=== PATIENT | male | born 1990 | race Caucasian/White ===

== ENCOUNTER 2020-05-08 07:26 | Emergency (ER) | payer OTHER, SELFPAY ==
--- NOTE | ~2020-05-08 | CT_ITS ---
EXAMINATION: CT ABDOMEN AND PELVIS WITHOUT CONTRAST CLINICAL INFORMATION: Right flank pain for 2 weeks worse today. COMPARISON: CT abdomen and pelvis 07/06/2011. TECHNIQUE: Multidetector volumetric imaging was performed from the superior aspect of the liver through the pubic symphysis. Sagittal and coronal reformatted images were obtained on the technologist's workstation. This CT examination was performed using dose optimization techniques as appropriate, variously including the following: *Automated exposure control *Adjustment of mA and/or kV according to patient size (this includes techniques or standardized protocols for targeted exams where dose is matched to indication/reason for exam; i.e. extremities or head) *Use of iterative reconstruction technique DLP: 1741 mGy-cm FINDINGS: LUNG BASES: The visualized lung bases are unremarkable. LIVER, GALLBLADDER, AND BILIARY TREE: The liver is normal in size, shape, and attenuation. No focal hepatic lesion or biliary ductal dilatation is present. The gallbladder is unremarkable with no evidence of radiopaque gallstones, gallbladder wall thickening, or obvious pericholecystic inflammatory changes. PANCREAS: Unremarkable. SPLEEN: Unremarkable. ADRENAL GLANDS: Unremarkable. KIDNEYS AND URETERS: The kidneys are normal in size, shape, and attenuation. No hydronephrosis, hydroureter, or calculi seen. No perinephric stranding. BLADDER: Unremarkable. GASTROINTESTINAL TRACT: There is scattered stool and gas in throughout the colon without distention. A few scattered diverticuli seen in the sigmoid and descending colon but no mural thickening or diverticulitis. The small bowel loops are normal caliber. Appendix has been surgically removed with coleen in place. No inflammatory process seen in the abdomen. ABDOMINAL WALL: No significant hernia is appreciated. LYMPH NODES: There are small shotty lymph nodes in bilateral bilateral inguinal region. VASCULAR: Unremarkable. PELVIC VISCERA: No pelvic mass or lymph nodes seen. There is no free fluid. OSSEOUS STRUCTURES: There is moderate spondylosis lower dorsal spine. CT/CT abdomen pelvis wo con IMPRESSION: No acute intra-abdominal process seen. No evidence of previous appendectomy. Mild constipation with scattered diverticuli but no diverticulitis or obstruction seen. No radiopaque urolith or hydroureteronephrosis.
[2020-05-08 07:53] VITALS: BP 125/78; PULSE 76; RESP 16; TEMP 36.6; O2SAT 96; BMI 53.1
--- NOTE | 2020-05-08 08:46 | ED_ITS ---
HPI - Back Pain/Injury General Chief Complaint: Back Pain/Injury Stated Complaint: BACK PAIN WORK RELATED Time Seen by Provider: 05/08/20 08:19 Source: patient Mode of arrival: ambulatory Limitations: no limitations History of Present Illness HPI Narrative: 29-year-old male with no significant past medical history presenting to the ED with complaints of right lower back pain for the past month now radiating up the spine within the past few days which started when he was at work. Reports he works at a [employer] and does heavy lifting, bending over, standing and sitting for long period's of time. MD elicited complaint: back pain and back injury Pertinent past history: prior back pain Onset (ago): month(s) (One month worse within the past few days) Timing: constant Severity: moderate Similar Symptoms Previously: Yes Quality: aching Location: lumbar spine and right lower back Radiation: none Exacerbating factors: movement, walking and lifting Relieving factors: none Associated symptoms: denies other symptoms Work related injury: Yes Related Data Previous Rx's Medication Instructions Recorded cyclobenzaprine 10 mg PO TID PRN #10 tab 05/08/20 lidocaine [Lidoderm] 1 patch TOPICAL DAILY #15 ea 05/08/20 naproxen 500 mg PO BID PRN #10 tab 05/08/20 Allergies Allergy/AdvReac Type Severity Reaction Status Date / Time No Known Allergies Allergy Unverified 12/14/19 16:17 Review of Systems Review of Systems: Constitutional : No trauma, No Weight loss, No Fever, No Chills, ENT/Mouth : No Hearing loss, No Ear Pain, No Nasal Congestion, No Sinus Pain, No Hoarseness, No sore throat, No Rhinorrhea, No Swallowing Difficulty Cardiovascular : No Chest Pain, No SOB Respiratory : No Cough, No Dyspnea Gastrointestinal : No Nausea, No Vomiting, No Diarrhea, No abdominal Pain, No Hematochezia, No Melena Genitourinary : No Dysuria, No Urinary Frequency, No Hematuria, No Urinary or Bowel Incontinence/retention Musculoskeletal : + Back pain, No neck pain, No joint stiffness, No joint swelling Skin : No Skin Lesions, No rash or signs of infection Neuro : No Weakness, No radiation, No Numbness, No Paresthesias, No headache, no loss of bowel or bladder incontinence, no saddle anesthesia, Focal weakness, No radiation Denies history of IV drug usage. Yes all other systems are reviewed and are negative [facility] Past Medical History Attestation statement: The following information was validated with the patient. Social History Social History Advance Directives: No Advance Directives Information Provided: No Physical Exam Vital Signs: Vital Signs: Last Vital Signs Temp 97.9 F 05/08/20 07:53 Pulse 76 05/08/20 07:53 Resp 16 05/08/20 07:53 BP 125/78 05/08/20 07:53 Pulse Ox 96 05/08/20 07:53 Body Mass Index 53.1 vital signs have been reviewed as normal and appeared to be correct. Blood pressure normal. Heart rate normal. Respiration rate normal. Temperature normal. Oxygen saturation normal. Appearance: Alert. Oriented X3. No acute distress. Head: Normal external exam. Normocephalic. Atraumatic. No Marley signs noted. No raccoon eyes noted Eyes: PERRLA. EOMI. Conjunctiva and sclera normal. Eyelids normal. ENT: EAC normal. TM's Normal. Pharynx normal. Uvula midline. Moist mucous membranes. No trismus noted. No drooling noted. No muffled voice noted. Neck: Normal inspection. Neck supple. FROM. No adenopathy. Thyroid Normal. No meningeal signs. No neck mass noted. CVS: Normal heart rate and rhythm. Heart sound normal. No murmurs noted. Pulses normal throughout. Respiratory: No respiratory distress. Painless inspiration. Breath sounds normal. No wheezes/rales/rhonchi noted. Chest nontender. No accessory muscle usage noted or decreased air movement noted. Abdomen: Soft and nontender. Bowel sounds normal in all 4 quadrants. No distention noted. No organomegaly noted. No visible injury noted. Back: + RCVAT, No LCVA tenderness. Full range of motion noted. No obvious deformities, or edema. Mild para-spinal muscular tenderness from lumbar region to coccyx. Full ROM in back and lower extremities. 5/5 strength hip extension/flexion, abduction, adduction. Mild Lumbar pain with hip flexion ag ainst resistance. Straight leg raise test negative on right; Straight leg raise test negative on left; Reflexes normal ankle and knee bilaterally; EHL motor strength normal bilaterally Skin: Skin warm and dry. Normal skin color. Normal skin turgor. No rashes/lesions/lacerations noted. Extremities: No lower extremity edema. Extremities exhibit normal range of motion. Extremities nontender. Neuro: Oriented X 3. No motor deficit. No sensory deficit. Reflexes normal. Course Course Course Narrative: Pt c likely muscular pain, but could be herniated disc. Neuro exam shows no deficits. Not c/w AAA/epidural abscess/dissection.No high risk Hx (Incont, fever, immunosupp, recent surgery/LP, coag, signif trauma, wt loss, puls mass, hx/o Ca, TB, or IVDU) to warrant MRI today. Not c/w Pyelo/spinal fx. Not cauda equina syndrome. Will obtain a CT scan for for possible kidney stone and UA for possible UTI otherwise no additional imaging indicated at this time. If CT scan negative for kidney stones and UA negative for UA will DC home with symptomatic treatment alone instructions return if any new or worsening symptoms follow up with primary care provider. Patient understands agrees the plan. MDM - Back Pain/Injury Medical Records Attestation: I reviewed the patient's medical records. Lab Data Attestation: I reviewed the patient's lab results. Labs: Lab Results 05/08/20 Range/Units 08:32 Urine Color YELLOW Urine Appearance CLEAR Urine pH 6.0 (5.0-8.0) Ur Specific [place] 1.025 (1.005-1.025) Urine Protein NEG (NEG-TRACE) MG/DL Urine Glucose (UA) NEG (NEG) MG/DL Urine Ketones NEG (NEG) MG/DL Urine Blood NEG (NEG) Urine Nitrite NEG (NEG) Ur Leukocyte Esterase NEG (NEG) Imaging Data ct scan abd/pelvis without contrast : Attestation: I personally reviewed and interpreted this imaging study as follows: Radiologist's impression: FINDINGS: LUNG BASES: The visualized lung bases are unremarkable. LIVER, GALLBLADDER, AND BILIARY TREE: The liver is normal in size, shape, and attenuation. No focal hepatic lesion or biliary ductal dilatation is present. The gallbladder is unremarkable with no evidence of radiopaque gallstones, gallbladder wall thickening, or obvious pericholecystic inflammatory changes. PANCREAS: Unremarkable. SPLEEN: Unremarkable. ADRENAL GLANDS: Unremarkable. KIDNEYS AND URETERS: The kidneys are normal in size, shape, and attenuation. No hydronephrosis, hydroureter, or calculi seen. No perinephric stranding. BLADDER: Unremarkable. GASTROINTESTINAL TRACT: There is scattered stool and gas in throughout the colon without distention. A few scattered diverticuli seen in the sigmoid and descending colon but no mural thickening or diverticulitis. The small bowel loops are normal caliber. Appendix has been surgically removed with coleen in place. No inflammatory process seen in the abdomen. ABDOMINAL WALL: No significant hernia is appreciated. LYMPH NODES: There are small shotty lymph nodes in bilateral bilateral inguinal region. VASCULAR: Unremarkable. PELVIC VISCERA: No pelvic mass or lymph nodes seen. There is no free fluid. OSSEOUS STRUCTURES: There is moderate spondylosis lower dorsal spine. CT/CT abdomen pelvis wo con IMPRESSION: No acute intra-abdominal process seen. No evidence of previous appendectomy. Mild constipation with scattered diverticuli but no diverticulitis or obstruction seen. No radiopaque urolith or hydroureteronephrosis. Discharge Plan Discharge Clinical Impression: Lumbar paraspinal muscle spasm, Lumbar spondylosis Strain of lumbar region Qualifiers: Encounter type: initial encounter Qualified Code(s): S39.012A - Strain of muscle, fascia and tendon of lower back, initial encounter Patient Disposition: Home, Self-Care Instructions: Osteoarthritis (ED) Prescriptions: New cyclobenzaprine 10 mg tablet 10 mg PO TID PRN (Reason: muscle spasm) Qty: 10 RF: 0 lidocaine [Lidoderm] 5 % adhesive patch,medicated 1 patch topical DAILY Qty: 15 RF: 0 naproxen 500 mg tablet 500 mg PO BID PRN (Reason: pain) Qty: 10 RF: 0 Referrals: Scotty Maki DO [Primary Care Provider] - 2 days Stand Alone Forms: Work/School Release Interventions: ED Discharge Assessment Last Done: 05/08/20 10:11 Discharge Date/Time: 05/08/20 10:12 Print Language: [place]
[2020-05-08 09:21] LABS: Glucose Urine UA NEG (NEG); Leukocyte Esterase Urine NEG (NEG); Nitrite Urine NEG (NEG); Specific Gravity - Urine 1.025 (1.005-1.025); Urine Blood NEG (NEG); Urine Ketones NEG (NEG); Urine Protein NEG (NEG-TRACE)
[2020-05-08 09:22] LABS: Appearance Urine CLEAR; Color Urine YELLOW
== END 2020-05-08 10:12 | disposition home or self-care (01) ==
PROVIDERS: Physician Assistant Medical; Emergency Provider Emergency Medicine Emergency Medical Services; PCP Family Medicine
DX: M62.830 Muscle spasm of back (principal); M47.816 Spondylosis without myelopathy or radiculopathy, lumbar region
CPT/HCPCS: 74176; 81003; 99283; 99284

== ENCOUNTER 2020-09-15 13:33 | Emergency (ER) | payer OTHER, SELFPAY ==
[2020-09-15 14:22] VITALS: BP 133/73; PULSE 113; RESP 18; TEMP 36.8; O2SAT 94; BMI 53.1
--- NOTE | 2020-09-15 15:05 | ED_ITS ---
HPI - General Adult General Chief complaint: General Medical Stated complaint: sick, soar throat Time Seen by Provider: 09/15/20 15:05 History of Present Illness HPI narrative: Patient complains of sore throat runny nose body aches and fatigue for 3-4 days, he did get the COVID vaccine, no cough no shortness of breath Related Data Previous Rx's Medication Instructions Recorded cyclobenzaprine 10 mg PO TID PRN #10 tab 05/08/20 lidocaine [Lidoderm] 1 patch TOPICAL DAILY #15 ea 05/08/20 naproxen 500 mg PO BID PRN #10 tab 05/08/20 acetaminophen 1,000 mg PO QID PRN #30 tab 09/15/20 ibuprofen 600 mg PO Q6H PRN #20 tab 09/15/20 penicillin V potassium 500 mg PO BID 10 Days #20 tab 09/15/20 acetaminophen [Tylenol] 650 mg PO Q6H PRN #30 tab 09/17/20 ibuprofen 800 mg PO Q8H PRN #20 tab 09/17/20 Allergies Allergy/AdvReac Type Severity Reaction Status Date / Time No Known Allergies Allergy Verified 09/15/20 14:26 Review of Systems Review of Systems: positive for runny nose sore throat body aches and fatigue Negatives are no fever no chills no dizziness no weakness no fainting no feeling faint no headache no neck pain no chest pain no shortness of breath no cough no abdominal pain no nausea vomiting or diarrhea no skin rash Yes all other sys tems are reviewed and are negative PMFSH Past Medical History Source: nursing notes reviewed Medical History No known health problems Social History Social History Alcohol intake: never Patient Tobacco Use Status: Never used Tobacco Use of substances other than those prescribed or required for medical reasons: No Advance Directives: No Advance Directives Information Provided: No Physical Exam Vital Signs: Vital Signs: Last Vital Signs Temp 98.3 F 09/15/20 14:22 Pulse 113 H 09/15/20 14:22 Resp 18 09/15/20 14:22 BP 133/73 09/15/20 14:22 Pulse Ox 94 09/15/20 14:22 Body Mass Index 53.1 general appearance no acute distress The eyes are clear no redness or discharge The pharynx is clear with no redness exudate or swelling, mucous membranes are moist, voice is normal Chest is clear to auscultation bilateral Heart no murmur Abdomen soft nontender Skin no rash Extremities full range of motion x4 Course Course Course Narrative: COVID testing was negative and strep testing was negative Patient is well appearing, tolerates p.o. no shortness of breath and is discharged Medical Decision Making Lab Data Labs: Lab Results 09/15/20 09/15/20 Range/Units 15:16 15:16 COVID-19 (LA[facility]HA) Negative (Negative) COVID-19 Clin Com See Note S. pyogenes GrpA YAA Negative (Negative) Discharge Plan Discharge Clinical Impression: Pharyngitis Patient Disposition: Home, Self-Care Additional Instructions: COVID test was negative Drink plenty of fluids Return any time any worse condition or any concerns Prescriptions: New penicillin V potassium 500 mg tablet 500 mg PO BID 10 Days Qty: 20 RF: 0 acetaminophen 500 mg tablet 1,000 mg PO QID PRN (Reason: pain) Qty: 30 RF: 0 ibuprofen 600 mg tablet 600 mg PO Q6H PRN (Reason: pain) Qty: 20 RF: 0 No Action cyclobenzaprine 10 mg tablet 10 mg PO TID PRN (Reason: muscle spasm) Qty: 10 RF: 0 lidocaine [Lidoderm] 5 % adhesive patch,medicated 1 patch topical DAILY Qty: 15 RF: 0 naproxen 500 mg tablet 500 mg PO BID PRN (Reason: pain) Qty: 10 RF: 0 ibuprofen 800 mg tablet 800 mg PO Q8H PRN (Reason: pain) Qty: 20 RF: 0 acetaminophen [Tylenol] 325 mg tablet 650 mg PO Q6H PRN (Reason: fever or pain) Qty: 30 RF: 0 Stand Alone Forms: Work/School Release Interventions: ED Discharge Assessment Last Done: 09/15/20 16:10 Discharge Date/Time: 09/15/20 16:11
[2020-09-15 15:32] LABS: IDNOW Serial# 08D9AD1C; Strep A Nucleic Acid Negative (Negative)
[2020-09-15 15:41] LABS: COVID-19 Test Negative (Negative)
[2020-09-15] MEDS: Acetaminophen 325 MG TABLET 975 MG PO (16:02)
[2020-09-15] MEDS: Ketorolac Tromethamine 30 MG/ML VIAL IM (16:05)
[2020-09-15] MEDS: dexAMETHasone 2 MG TABLET 10 MG PO (16:05)
== END 2020-09-15 16:11 | disposition home or self-care (01) ==
PROVIDERS: Physician Assistant Medical; Emergency Provider Emergency Medicine
DX: J02.9 Acute pharyngitis, unspecified (principal); R09.89 Other specified symptoms and signs involving the circulatory and respiratory systems; Z20.822 Contact with and (suspected) exposure to COVID-19
CPT/HCPCS: 36415; 87635; 87651; 96372; 99283; 99284; J1885; J8540

== ENCOUNTER 2020-09-17 07:15 | Emergency (ER) | payer OTHER, SELFPAY ==
--- NOTE | ~2020-09-17 | XR_ITS ---
EXAMINATION: XR CHEST CLINICAL INFORMATION: Chest pain COMPARISON: None TECHNIQUE: 2 views of the chest were obtained. FINDINGS: No significant abnormality is noted involving the heart, lungs, mediastinum, bony thorax or soft tissues. XR/XR chest 2V IMPRESSION: Unremarkable chest exam.
[2020-09-17 07:18] VITALS: BP 136/62; PULSE 130; RESP 22; TEMP 37.9; O2SAT 94; BMI 53.1
[2020-09-17] MEDS: Acetaminophen 325 MG TABLET 650 MG PO (07:22)
[2020-09-17 08:04] VITALS: BP 133/66; PULSE 114; RESP 21; TEMP 38.3; O2SAT 93
--- NOTE | 2020-09-17 08:30 | ECG_ITS ---
Test Reason : SOB Blood Pressure : / mmHG Vent. Rate : 105 BPM Atrial Rate : 105 BPM P-R Int : 160 ms QRS Dur : 098 ms QT Int : 328 ms P-R-T Axes : 041 010 025 degrees QTc Int : 433 ms Sinus tachycardia Cannot rule out Anterior infarct , age undetermined Abnormal ECG No previous ECGs available Referred By: Keke Nguyen Electronically Signed By:Gage Rivas
[2020-09-17] MEDS: 0.9 % Sodium Chloride 1,000 ML 999 ML IV (08:31)
--- NOTE | 2020-09-17 08:50 | ED_ITS ---
HPI - General Adult General Chief complaint: General Medical Stated complaint: VIRAL INFECTION Time Seen by Provider: 09/17/20 08:22 Source: patient Mode of arrival: ambulatory Limitations: no limitations History of Present Illness HPI narrative: 29 yo male here with complaints of sore throat, bilateral ear pain, fever with max temp 101F, cough, chest discomfort with coughing, vomiting, body aches/muscle aches x4 days. Seen here 08/28. Had negative COVID, strep testing but concern for strep pharyngitis and started on penicillin BID. Continued symptoms, patient feels he is worsening. No joint pain, rash, tick bi jeff, diarrhea, abdominal pain, or SOB. One episode of vomiting yesterday, otherwise only nausea. Non-productive cough. No sick contact. Fully vaccinated for COVID 19. Related Data Previous Rx's Medication Instructions Recorded cyclobenzaprine 10 mg PO TID PRN #10 tab 05/08/20 lidocaine [Lidoderm] 1 patch TOPICAL DAILY #15 ea 05/08/20 naproxen 500 mg PO BID PRN #10 tab 05/08/20 acetaminophen 1,000 mg PO QID PRN #30 tab 09/15/20 ibuprofen 600 mg PO Q6H PRN #20 tab 09/15/20 penicillin V potassium 500 mg PO BID 10 Days #20 tab 09/15/20 acetaminophen [Tylenol] 650 mg PO Q6H PRN #30 tab 09/17/20 ibuprofen 800 mg PO Q8H PRN #20 tab 09/17/20 Allergies Allergy/AdvReac Type Severity Reaction Status Date / Time No Known Allergies Allergy Verified 09/15/20 14:26 Review of Systems Review of Systems: Yes all other systems are reviewed and are negative Constitutional: Constitutional: Reports no additional constitutional complaints, Reports body ache(s), Reports chills, Reports fever(s), Denies headache(s) and Denies weakness Eyes: Eyes: Reports no additional eye complaints and Denies change in vision ENT: Reports system reviewed and no additional complaints, except as documented, Denies dizziness, Reports otalgia, Denies headache(s), Denies nasal congestion, Denies nasal discharge, Denies neck pain and Reports sore throat Cardiovascular: Cardiovascular: Reports no additional cardiovascular complaints, Reports chest pain, Denies leg edema and Denies dyspnea Respiratory: Respiratory: Reports no additional respiratory complaints, Reports cough and Denies dyspnea Gastrointestinal: Gastrointestinal: Reports no additional gastrointestinal complaints, Denies abdominal pain, Denies diarrhea, Denies nausea and Reports vomiting (x1) Genitourinary: Genitourinary: Denies urinary incontinence Musculoskeletal: Musculoskeletal: Reports no additional musculoskeletal complaints, Denies back pain, Denies arthralgias, Denies joint swelling, Denies neck pain, Denies numbness and Denies tingling Integumentary/Breasts: Skin/Breast: Reports system reviewed and no additional complaints, except as docu and Denies rash Neurologic: Reports system reviewed and no additional complaints, except as documented, Denies Abnormal speech present, Denies dizziness, Denies headache(s), Denies numbness, Denies tingling and Denies weakness PMFSH Past Medical History Attestation statement: The following information was validated with the patient. Source: old records reviewed and nursing notes reviewed Medical History No known health problems Social History Social History Alcohol intake: never Patient Tobacco Use Status: Never used Tobacco Use of substances other than those prescribed or required for medical reasons: No Advance Directives: No Advance Directives Information Provided: No Physical Exam Vital Signs: Vital Signs: Last Vital Signs Temp 99.0 F 09/17/20 11:02 Pulse 92 09/17/20 11:02 Resp 15 09/17/20 11:02 BP 112/62 09/17/20 11:02 Pulse Ox 98 09/17/20 11:02 Body Mass Index 53.1 Const: General: cooperative, healthy appearing, comfortable and no acute distress Orientation/consciousness: patient oriented x3 Limitations: no limitations HENMT: Head: Yes normal to inspection Ears: hearing grossly normal bilaterally and TM's normal bilaterally General nose exam: Normal external nose present Face and sinus: Yes normal facial exam Mouth: Normal oral and palatal mucosa present Throat: Yes posterior oropharynx normal, Yes abnormal tonsil (bilateral tonsillar swelling/erythema/exudate) and No peritonsillar mass Eyes: General: appearance normal, both eyes and all related structures Pupils: Equal, round and reactive pupils present Neck: Neck: Yes normal visual inspection, Yes full ROM, Yes no lymphadenopathy and Yes no meningeal signs Chest: Chest palpation & inspection: normal inspection of the chest and tenderness (mild central chest tenderness ) Resp: Effort & Inspection: normal respiratory effort Auscultation: clear to auscultation bilaterally Cardio: Rate: tachycardic Rhythm: regular rhythm Peripheral pulses: Peripheral pulses 2+ throughout GI: Inspection: Yes normal to inspection Palpation (GI): Soft to palpation and nontender Auscultation: normal bowel sounds Back/Spine/Pelvis: Thoracic/Lumbar Spine: thoracic and lumbar spine normal to inspection Skin: General skin exam: no rashes or lesions noted Neuro: General: patient oriented x3, no meningeal signs, no focal motor deficits and normal sensation to monofilament Cranial nerves: Yes Equal, round and reactive pupils present Cognition (Neuro): normal cognition Speech: No Abnormal speech present Gait exam (Neuro): Normal gait present Motor exam (neuro): 5/5 motor strength present throughout Extrem: General: Yes normal to inspection, Yes no pedal edema and Yes no calf tenderness Course Course Course Narrative: 29 yo male here with continued fevers, cough, chest discomfort with coughing, vomiting x1, nausea, sore throat, bilateral ear pain x 4 days despite being treated with PCN x 48hrs for presumed strep pharyngitis. Negative COVID/strep testing 2 days ago. On arrival fever 101, hr 114 which is from fever and this is from a viral infection. Will check labs including blood cultures, lactic acid, CXR, COVID screen, monospot, strep swap, UA. Will give antipyretic, NSB and re-assess. 1150-Labs show mild leukoctosis with lymphocytopenia with negative lactic acid. All other labs including monospot, COVID screen, strep negative. CXR and UA negative. Likely viral syndrome. Patient tolerating PO. NO vomiting here. No abdominal pain. Heart rate and temp improved. D/t bilateral tonsillar erythema/swelling could consider strep pharyngitis however 2 negative tests. Patient can continue oral antibiotics d/t exam concerning for strep pharyngitis. Reviewed worrisome signs/symptoms with patient and when to return to ED. Comfortable with discharge home. Medical Decision Making MDM Narrative Medical decision making narrative: uti, pna, viral syndrome, mono, strep pharyngitis Medical Records Medical records reviewed: Yes I reviewed the patient's medical records. Lab Data Lab results reviewed: Yes I reviewed the patient's lab results. Result diagrams: 09/17/20 08:37 09/17/20 08:36 Labs: Lab Results 09/17/20 09/17/20 09/17/20 Range/Units 08:35 08:36 08:36 WBC (4.8-10.8) X10*3/uL RBC (4.60-5.80) X10*6/uL Hgb (14.0-18.0) g/dl Hct (42-52) % MCV (80-98) fL MCH (27.0-33.0) pg MCHC (31.0-36.0) g/dl RDW (11.0-16.0) % Plt Count (160-400) X10*3/uL MPV (9.4-12.4) fL Immature Gran % (Auto) (0.0-0.4) % Neut % (Auto) (45-73) % Lymph % (Auto) (20-40) % [place] % (Auto) (2-11) % Eos % (Auto) (0-4) % Baso % (Auto) (0-2) % Lymph # (Auto) (1.2-4.9) X10*3/uL [place] # (Auto) (0.1-1.2) X10*3/uL Eos # (Auto) (0.0-0.4) X10*3/uL Baso # (Auto) (0.0-0.2) X10*3/uL Abs Immat Gran (auto) (0.00-0.03) X10*3/uL Absolute Neuts (auto) (2.0-8.3) X10*3/uL Absolute Nucleated RBC (0.0-0.012) X10*3/uL Nucleated RBC % (auto) (0.0-0.2) /100WBC Smear Tech's Comments Sodium 136 (135-145) mmol/L Potassium 4.2 (3.3-5.1) mmol/L Chloride 103 (96-108) mmol/L Carbon Dioxide 24 (22-29) mmol/L Anion Gap 13 (12-20) BUN 14 (9-16) mg/dL Creatinine 0.86 (0.5-1.4) mg/dL Estim Creat Clear Calc 195.2 Estimated GFR > 60 Random Glucose 98 (60-115) mg/dL Lactic Acid 0.9 (0.5-2.0) mmol/L Calcium 8.4 (8.4-10.2) mg/dL Magnesium 1.7 (1.6-2.6) mg/dL Total Bilirubin 0.5 (0.0-1.0) mg/dL Direct Bilirubin 0.2 (0.0-0.5) mg/dL AST 17 (5-37) U/L ALT 20 (0-40) U/L Alkaline Phosphatase 68 (39-117) U/L Troponin I High Sens (<3.5-35.0) ng/L Total Protein 6.8 (6.5-8.0) g/dL Albumin 3.7 (3.5-5.0) g/dL Urine Color Urine Appearance Urine pH (5.0-8.0) Ur Specific [place] (1.005-1.025) Urine Protein (NEG-TRACE) MG/DL Urine Glucose (UA) (NEG) MG/DL Urine Ketones (NEG) MG/DL Urine Blood (NEG) Urine Nitrite (NEG) Ur Leukocyte Esterase (NEG) COVID-19 (LAKESHA) Negative (Negative) COVID-19 Clin Com See Note Monoscreen (Negative) S. pyogenes GrpA YAA (Negative) 09/17/20 09/17/20 09/17/20 Range/Units 08:36 08:37 08:39 WBC 13.5 H (4.8-10.8) X10*3/uL RBC 4.93 (4.60-5.80) X10*6/uL Hgb 14.7 (14.0-18.0) g/dl Hct 44.2 (42-52) % MCV 89.7 (80-98) fL MCH 29.8 (27.0-33.0) pg MCHC 33.3 (31.0-36.0) g/dl RDW 12.4 (11.0-16.0) % Plt Count 237 (160-400) X10*3/uL MPV 9.5 (9.4-12.4) fL Immature Gran % (Auto) 0.4 (0.0-0.4) % Neut % (Auto) 79.9 H (45-73) % Lymph % (Auto) 8.0 L (20-40) % [place] % (Auto) 11.5 H (2-11) % Eos % (Auto) 0.0 (0-4) % Baso % (Auto) 0.2 (0-2) % Lymph # (Auto) 1.1 L (1.2-4.9) X10*3/uL [place] # (Auto) 1.6 H (0.1-1.2) X10*3/uL Eos # (Auto) 0.0 (0.0-0.4) X10*3/uL Baso # (Auto) 0.0 (0.0-0.2) X10*3/uL Abs Immat Gran (auto) 0.05 H (0.00-0.03) X10*3/uL Absolute Neuts (auto) 10.8 H (2.0-8.3) X10*3/uL Absolute Nucleated RBC 0.000 (0.0-0.012) X10*3/uL Nucleated RBC % (auto) 0.0 (0.0-0.2) /100WBC Smear Tech's Comments VERIFIED Sodium (135-145) mmol/L Potassium (3.3-5.1) mmol/L Chloride (96-108) mmol/L Carbon Dioxide (22-29) mmol/L Anion Gap (12-20) BUN (9-16) mg/dL Creatinine (0.5-1.4) mg/dL Estim Creat Clear Calc Estimated GFR Random Glucose (60-115) mg/dL Lactic Acid (0.5-2.0) mmol/L Calcium (8.4-10.2) mg/dL Magnesium (1.6-2.6) mg/dL Total Bilirubin (0.0-1.0) mg/dL Direct Bilirubin (0.0-0.5) mg/dL AST (5-37) U/L ALT (0-40) U/L Alkaline Phosphatase (39-117) U/L Troponin I High Sens < 3.5 (<3.5-35.0) ng/L Total Protein (6.5-8.0) g/dL Albumin (3.5-5.0) g/dL Urine Color Urine Appearance Urine pH (5.0-8.0) Ur Specific [place] (1.005-1.025) Urine Protein (NEG-TRACE) MG/DL Urine Glucose (UA) (NEG) MG/DL Urine Ketones (NEG) MG/DL Urine Blood (NEG) Urine Nitrite (NEG) Ur Leukocyte Esterase (NEG) COVID-19 (LAKESHA) (Negative) COVID-19 Clin Com Monoscreen Negative (Negative) S. pyogenes GrpA YAA (Negative) 09/17/20 09/17/20 Range/Units 09:56 10:22 WBC (4.8-10.8) X10*3/uL RBC (4.60-5.80) X10*6/uL Hgb (14.0-18.0) g/dl Hct (42-52) % MCV (80-98) fL MCH (27.0-33.0) pg MCHC (31.0-36.0) g/dl RDW (11.0-16.0) % Plt Count (160-400) X10*3/uL MPV (9.4-12.4) fL Immature Gran % (Auto) (0.0-0.4) % Neut % (Auto) (45-73) % Lymph % (Auto) (20-40) % [place] % (Auto) (2-11) % Eos % (Auto) (0-4) % Baso % (Auto) (0-2) % Lymph # (Auto) (1.2-4.9) X10*3/uL [place] # (Auto) (0.1-1.2) X10*3/uL Eos # (Auto) (0.0-0.4) X10*3/uL Baso # (Auto) (0.0-0.2) X10*3/uL Abs Immat Gran (auto) (0.00-0.03) X10*3/uL Absolute Neuts (auto) (2.0-8.3) X10*3/uL Absolute Nucleated RBC (0.0-0.012) X10*3/uL Nucleated RBC % (auto) (0.0-0.2) /100WBC Smear Tech's Comments Sodium (135-145) mmol/L Potassium (3.3-5.1) mmol/L Chloride (96-108) mmol/L Carbon Dioxide (22-29) mmol/L Anion Gap (12-20) BUN (9-16) mg/dL Creatinine (0.5-1.4) mg/dL Estim Creat Clear Calc Estimated GFR Random Glucose (60-115) mg/dL Lactic Acid (0.5-2.0) mmol/L Calcium (8.4-10.2) mg/dL Magnesium (1.6-2.6) mg/dL Total Bilirubin (0.0-1.0) mg/dL Direct Bilirubin (0.0-0.5) mg/dL AST (5-37) U/L ALT (0-40) U/L Alkaline Phosphatase (39-117) U/L Troponin I High Sens (<3.5-35.0) ng/L Total Protein (6.5-8.0) g/dL Albumin (3.5-5.0) g/dL Urine Color YELLOW Urine Appearance HAZY Urine pH 6.0 (5.0-8.0) Ur Specific [place] 1.025 (1.005-1.025) Urine Protein NEG (NEG-TRACE) MG/DL Urine Glucose (UA) NEG (NEG) MG/DL Urine Ketones NEG (NEG) MG/DL Urine Blood NEG (NEG) Urine Nitrite NEG (NEG) Ur Leukocyte Esterase NEG (NEG) COVID-19 (LAKESHA) (Negative) COVID-19 Clin Com Monoscreen (Negative) S. pyogenes GrpA YAA Negative (Negative) Imaging Data Chest x-ray: Attestation: I personally reviewed and interpreted this imaging study as follows: Radiologist's impression: EXAMINATION: XR CHEST CLINICAL INFORMATION: Chest pain COMPARISON: None TECHNIQUE: 2 views of the chest were obtained. FINDINGS: No significant abnormality is noted involving the heart, lungs, mediastinum, bony thorax or soft tissues. XR/XR chest 2V IMPRESSION: Unremarkable chest exam. ECG Data Attestation: I personally reviewed and interpreted this ECG as follows: Interpretation: ST with rate 105, normal pr, normal qrs, normal qtc Discharge Plan Discharge Clinical Impression: Acute viral syndrome Patient Disposition: Home, Self-Care Instructions: Viral Syndrome (ED) Additional Instructions: Increase fluids, rest Continue motrin/tylenol as discussed Continue penicillin salt water gargles, cepacol lozenges Prescriptions: New ibuprofen 800 mg tablet 800 mg PO Q8H PRN (Reason: pain) Qty: 20 RF: 0 acetaminophen [Tylenol] 325 mg tablet 650 mg PO Q6H PRN (Reason: fever or pain) Qty: 30 RF: 0 No Action cyclobenzaprine 10 mg tablet 10 mg PO TID PRN (Reason: muscle spasm) Qty: 10 RF: 0 lidocaine [Lidoderm] 5 % adhesive patch,medicated 1 patch topical DAILY Qty: 15 RF: 0 naproxen 500 mg tablet 500 mg PO BID PRN (Reason: pain) Qty: 10 RF: 0 penicillin V potassium 500 mg tablet 500 mg PO BID 10 Days Qty: 20 RF: 0 acetaminophen 500 mg tablet 1,000 mg PO QID PRN (Reason: pain) Qty: 30 RF: 0 ibuprofen 600 mg tablet 600 mg PO Q6H PRN (Reason: pain) Qty: 20 RF: 0 Referrals: Scotty Maki DO [Primary Care Provider] - 2 days Stand Alone Forms: Work/School Release
[2020-09-17 09:00] LABS: Basophils Percent Auto 0.2 % (0-2); Hematocrit 44.2 % (42-52); Hemoglobin 14.7 g/dl (14.0-18.0); Imm Gran Abs Auto 0.05 X10*3/uL (0.00-0.03); Imm Gran Pct Auto 0.4 % (0.0-0.4); Lymphocytes Absolute Auto 1.1 X10*3/uL (1.2-4.9); MANUAL DIFF FLAG SCAN; Mean Corpuscular HGB Conc 33.3 g/dl (31.0-36.0); Mean Corpuscular Hemoglobin 29.8 pg (27.0-33.0); Mean Corpuscular Volume 89.7 fL (80-98); Mean Platelet Volume 9.5 fL (9.4-12.4); Monocytes Absolute Auto 1.6 X10*3/uL (0.1-1.2); Monocytes Percent Auto 11.5 % (2-11); Neutrophils Absolute Auto 10.8 X10*3/uL (2.0-8.3); Neutrophils Percent Auto 79.9 % (45-73); Platelet Count 237 X10*3/uL (160-400); Red Blood Count 4.93 X10*6/uL (4.60-5.80); Red Cell Distribution Width 12.4 % (11.0-16.0); SCAN SMEAR FLAG 1; White Blood Count 13.5 X10*3/uL (4.8-10.8)
[2020-09-17 09:05] VITALS: PULSE 102; RESP 19
[2020-09-17 09:09] LABS: IDNOW Serial# 9DD0AD1C
[2020-09-17 09:10] LABS: COVID-19 Test Negative (Negative)
[2020-09-17 09:12] LABS: Lactic Acid 0.9 mmol/L (0.5-2.0)
[2020-09-17 09:18] LABS: Alanine Aminotransferase 20 U/L (0-40); Albumin Level 3.7 g/dL (3.5-5.0); Alkaline Phosphatase 68 U/L (39-117); Anion Gap 13 (12-20); Aspartate Amino Transferase 17 U/L (5-37); Bilirubin Direct 0.2 mg/dL (0.0-0.5); Bilirubin Total 0.5 mg/dL (0.0-1.0); Blood Urea Nitrogen 14 mg/dL (9-16); Calcium 8.4 mg/dL (8.4-10.2); Carbon Dioxide 24 mmol/L (22-29); Chloride 103 mmol/L (96-108); Creatinine Clr Calc Pharmacy 195.2; Estimated Glomerular Filt Rate > 60; Glucose Random 98 mg/dL (60-115); Magnesium 1.7 mg/dL (1.6-2.6); Potassium 4.2 mmol/L (3.3-5.1); Sodium 136 mmol/L (135-145); Total Protein 6.8 g/dL (6.5-8.0)
[2020-09-17 09:22] LABS: Troponin-I High Sensitivity < 3.5 ng/L (<3.5-35.0)
[2020-09-17 09:28] LABS: Monotest Negative (Negative)
[2020-09-17 09:34] LABS: SLIDE REVIEW VERIFIED
[2020-09-17 09:50] VITALS: BP 121/70; PULSE 95; RESP 24; TEMP 37.2; O2SAT 95
[2020-09-17 10:31] LABS: Glucose Urine UA NEG (NEG); Leukocyte Esterase Urine NEG (NEG); Nitrite Urine NEG (NEG); Specific Gravity - Urine 1.025 (1.005-1.025); Urine Blood NEG (NEG); Urine Ketones NEG (NEG); Urine Protein NEG (NEG-TRACE)
[2020-09-17 10:32] LABS: Appearance Urine HAZY; Color Urine YELLOW
[2020-09-17 11:02] VITALS: BP 112/62; PULSE 92; RESP 15; TEMP 37.2; O2SAT 98
[2020-09-17 11:09] LABS: IDNOW Serial# 9DD0AD1C
[2020-09-17 11:10] LABS: Strep A Nucleic Acid Negative (Negative)
== END 2020-09-17 12:02 | disposition home or self-care (01) ==
PROVIDERS: Nurse Practitioner Family; Emergency Provider Emergency Medicine Emergency Medical Services; PCP Family Medicine
DX: B34.9 Viral infection, unspecified (principal); Z20.822 Contact with and (suspected) exposure to COVID-19
CPT/HCPCS: 36415; 71046; 80048; 80076; 81003; 83605; 83735; 84484; 85025; 86308; 87040; 87635; 87651; 93005; 96360; 99284; 99285

== ENCOUNTER 2021-04-30 15:01 | Emergency (ER) | payer OTHER, SELFPAY ==
--- NOTE | ~2021-04-30 | CT_ITS ---
EXAMINATION: CT ABDOMEN AND PELVIS WITH CONTRAST CLINICAL INFORMATION: Left lower quadrant pain with history of diverticulitis COMPARISON: 05/08/2020 TECHNIQUE: Multidetector volumetric images were obtained from the superior aspect of the liver through the pubic symphysis following administration 85 mL of Omnipaque 350 intravenous contrast. Sagittal and coronal reformatted images were obtained on the technologist's workstation. Oral contrast: No This CT examination was performed using dose optimization techniques as appropriate, variously including the following: *Automated exposure control *Adjustment of mA and/or kV according to patient size (this includes techniques or standardized protocols for targeted exams where dose is matched to indication/reason for exam; i.e. extremities or head) *Use of iterative reconstruction technique DLP: 1868 mGy-cm FINDINGS: LUNG BASES: The visualized lung bases are unremarkable. LIVER, GALLBLADDER, AND BILIARY TREE: The liver is normal in size, shape, and attenuation. No focal hepatic lesion or biliary ductal dilatation is present. The gallbladder is unremarkable with no evidence of radiopaque gallstones, gallbladder wall thickening, or obvious pericholecystic inflammatory changes. PANCREAS: Normal. SPLEEN: Normal. ADRENAL GLANDS: Unremarkable. KIDNEYS AND URETERS: The kidneys are normal in size, shape, and attenuation. No hydronephrosis, hydroureter, or calculi seen. No perinephric stranding. BLADDER: Unremarkable. GASTROINTESTINAL TRACT: Stomach and small bowel are nondilated. Postsurgical changes adjacent the cecum consistent with prior appendectomy. There is eccentric wall thickening of the proximal sigmoid colon with adjacent fluid and fat stranding consistent with acute diverticulitis. No abscess or perforation. ABDOMINAL WALL: No significant hernia is appreciated. LYMPH NODES: Normal. VASCULAR: Normal caliber aorta. PELVIC VISCERA: The prostate and seminal vesicles are unremarkable. OSSEOUS STRUCTURES: Unremarkable. CT/CT abdomen pelvis w con IMPRESSION: Acute diverticulitis of the proximal sigmoid colon without evidence of abscess or perforation. Fleischner guidelines were followed.
[2021-04-30 15:05] VITALS: BP 143/78; PULSE 89; RESP 18; TEMP 36.3; O2SAT 96; BMI 51.2
--- NOTE | 2021-04-30 17:55 | ED_ITS ---
HPI - Abdominal Pain General Chief Complaint: Abdominal Pain Stated Complaint: severe abd pain sent from dr's office Time Seen by Provider: 04/30/21 17:54 Source: patient Mode of arrival: ambulatory Limitations: no limitations History of Present Illness HPI narrative: Patient's history of diverticulosis status post appendectomy noticed gradual increasing pain in lower abdomen since 21:00 yesterday associated with nausea no vomiting no bowel movements no prior history of diverticulitis no fever or chills pain get worse on ambulation no urinary complaint Related Data Previous Rx's Medication Instructions Recorded cyclobenzaprine 10 mg tablet 10 mg PO TID PRN #10 tab 05/08/20 lidocaine 5 % topical patch 1 patch TOPICAL DAILY #15 ea 05/08/20 (Lidoderm) naproxen 500 mg tablet 500 mg PO BID PRN #10 tab 05/08/20 acetaminophen 500 mg tablet 1,000 mg PO QID PRN #30 tab 09/15/20 ibuprofen 600 mg tablet 600 mg PO Q6H PRN #20 tab 09/15/20 penicillin V potassium 500 mg 500 mg PO BID 10 Days #20 tab 09/15/20 tablet acetaminophen 325 mg tablet 650 mg PO Q6H PRN #30 tab 09/17/20 (Tylenol) ibuprofen 800 mg tablet 800 mg PO Q8H PRN #20 tab 09/17/20 ciprofloxacin HCl 500 mg tablet 500 mg PO BID #20 tab 04/30/21 (Cipro) metronidazole 500 mg tablet 500 mg PO BID 10 Days #20 tab 04/30/21 oxycodone 5 mg tablet 5 mg PO Q6H PRN #20 tab 04/30/21 Allergies Allergy/AdvReac Type Severity Reaction Status Date / Time No Known Allergies Allergy Verified 09/15/20 14:26 Review of Systems Review of Systems Yes all other systems are reviewed and are negative Physical Exam Verdana 4l Vital Signs: Verdana 4d Verdana 4d Vital Signs: Verdana 4d Verdana 4Bd Last Vital Signs Verdana 4d [facility] Temp 98.1 F 04/30/21 21:52 [facility] Pulse 84 04/30/21 21:52 [facility] Resp 16 04/30/21 21:52 BP 115/64 04/30/21 21:52 Pulse Ox 96 04/30/21 21:52 BMI result Body Mass Index 51.2 Appearance: Alert. Oriented X3. Mild distress obese patient Eyes: No pallor or icterus ENT: Pharynx normal. Oral Mucosa moist Neck: Normal inspection. Neck supple. CVS: Normal heart rate and rhythm. Pulses normal. Respiratory: No respiratory distress. Equal air entry bilateral, Abdomen: Soft deep tenderness lower abdomen and left lower quadrant no rebound tenderness or guarding Bowel sounds are present, no mass palpable, no CVA tenderness Skin: Skin warm and dry. Normal skin color. Normal skin turgor. Extremities: No lower extremity edema. No calf tenderness Neuro: Oriented X 3. MDM - Abdominal Pain MDM Narrative Medical decision making narrative: Patient with uncomplicated diverticulitis was given 1 dose of IV antibiotic in the ER discharge him home on Cipro and Flagyl advised to come back to the ER if pain gets worse Lab Data Attestation: I reviewed the patient's lab results. Result diagrams: 04/30/21 18:43 04/30/21 18:43 Labs: Lab Results 04/30/21 04/30/21 04/30/21 Range/Units 17:51 18:43 18:43 WBC 11.8 H (4.8-10.8) X10*3/uL RBC 4.84 (4.60-5.80) X10*6/uL Hgb 14.6 (14.0-18.0) g/dl Hct 43.2 (42.0-52.0) % MCV 89.3 (80.0-98.0) fL MCH 30.2 (27.0-33.0) pg MCHC 33.8 (31.0-36.0) g/dl RDW 12.7 (11.0-16.0) % Plt Count 245 (160-400) X10*3/uL MPV 9.6 (9.4-12.4) fL Immature Gran % (Auto) 0.7 H (0.0-0.4) % Neut % (Auto) 68.9 (45-73) % Lymph % (Auto) 17.8 L (20-40) % [place] % (Auto) 11.4 H (2-11) % Eos % (Auto) 0.9 (0-4) % Baso % (Auto) 0.3 (0-2) % Lymph # (Auto) 2.1 (1.2-4.9) X10*3/uL [place] # (Auto) 1.4 H (0.1-1.2) X10*3/uL Eos # (Auto) 0.1 (0.0-0.4) X10*3/uL Baso # (Auto) 0.0 (0.0-0.2) X10*3/uL Abs Immat Gran (auto) 0.08 H (0.00-0.03) X10*3/uL Absolute Neuts (auto) 8.2 (2.0-8.3) x10*3/uL Absolute Nucleated RBC 0.000 (0.0-0.012) X10*3/uL Nucleated RBC % (auto) 0.0 (0.0-0.2) /100WBC Sodium 135 (135-145) mmol/L Potassium 3.6 (3.3-5.1) mmol/L Chloride 100 (96-108) mmol/L Carbon Dioxide 27 (22-29) mmol/L Anion Gap 12 (12-20) BUN 11 (9-16) mg/dL Creatinine 0.87 (0.5-1.4) mg/dL Estim Creat Clear Calc 187.1 Estimated GFR > 60 Random Glucose 88 (60-115) mg/dL Lactic Acid (0.5-2.0) mmol/L Calcium 9.0 D (8.4-10.2) mg/dL Total Bilirubin 1.3 H (0.0-1.0) mg/dL AST 21 (5-37) U/L ALT 28 (0-40) U/L Alkaline Phosphatase 71 (39-117) U/L Total Protein 7.6 (6.5-8.0) g/dL Albumin 4.2 (3.5-5.0) g/dL Lipase 13 (8-78) U/L Urine Color YELLOW Urine Appearance CLEAR Urine pH 6.0 (5.0-8.0) Ur Specific [place] <= 1.005 (1.005-1.025) Urine Protein NEG (NEG-TRACE) MG/DL Urine Glucose (UA) NEG (NEG) MG/DL Urine Ketones NEG (NEG) MG/DL Urine Blood NEG (NEG) Urine Nitrite NEG (NEG) Ur Leukocyte Esterase NEG (NEG) 02/02/22 Range/Units 18:43 WBC (4.8-10.8) X10*3/uL RBC (4.60-5.80) X10*6/uL Hgb (14.0-18.0) g/dl Hct (42.0-52.0) % MCV (80.0-98.0) fL MCH (27.0-33.0) pg MCHC (31.0-36.0) g/dl RDW (11.0-16.0) % Plt Count (160-400) X10*3/uL MPV (9.4-12.4) fL Immature Gran % (Auto) (0.0-0.4) % Neut % (Auto) (45-73) % Lymph % (Auto) (20-40) % [place] % (Auto) (2-11) % Eos % (Auto) (0-4) % Baso % (Auto) (0-2) % Lymph # (Auto) (1.2-4.9) X10*3/uL [place] # (Auto) (0.1-1.2) X10*3/uL Eos # (Auto) (0.0-0.4) X10*3/uL Baso # (Auto) (0.0-0.2) X10*3/uL Abs Immat Gran (auto) (0.00-0.03) X10*3/uL Absolute Neuts (auto) (2.0-8.3) x10*3/uL Absolute Nucleated RBC (0.0-0.012) X10*3/uL Nucleated RBC % (auto) (0.0-0.2) /100WBC Sodium (135-145) mmol/L Potassium (3.3-5.1) mmol/L Chloride (96-108) mmol/L Carbon Dioxide (22-29) mmol/L Anion Gap (12-20) BUN (9-16) mg/dL Creatinine (0.5-1.4) mg/dL Estim Creat Clear Calc Estimated GFR Random Glucose (60-115) mg/dL Lactic Acid 0.7 (0.5-2.0) mmol/L Calcium (8.4-10.2) mg/dL Total Bilirubin (0.0-1.0) mg/dL AST (5-37) U/L ALT (0-40) U/L Alkaline Phosphatase (39-117) U/L Total Protein (6.5-8.0) g/dL Albumin (3.5-5.0) g/dL Lipase (8-78) U/L Urine Color Urine Appearance Urine pH (5.0-8.0) Ur Specific [place] (1.005-1.025) Urine Protein (NEG-TRACE) MG/DL Urine Glucose (UA) (NEG) MG/DL Urine Ketones (NEG) MG/DL Urine Blood (NEG) Urine Nitrite (NEG) Ur Leukocyte Esterase (NEG) Discharge Plan Discharge Clinical Impression: Diverticulitis Patient Disposition: Home, Self-Care Instructions: Diverticulitis (ED) Additional Instructions: Drink plenty of fluids Clear liquids advanced slowly if pain gets better Report to the ER if worsening of the pain/fever/vomiting Take antibiotic as prescribed Prescriptions: New ciprofloxacin HCl [Cipro] 500 mg tablet 500 mg PO BID Qty: 20 0RF metronidazole 500 mg tablet 500 mg PO BID 10 Days Qty: 20 0RF oxycodone 5 mg tablet 5 mg PO Q6H PRN (Reason: Pain, Severe) Qty: 20 0RF No Action cyclobenzaprine 10 mg tablet 10 mg PO TID PRN (Reason: muscle spasm) Qty: 10 0RF lidocaine [Lidoderm] 5 % adhesive patch,medicated 1 patch topical DAILY Qty: 15 0RF Rx Instructions: leave on most painful area for up to 12 hrs. May be substituted naproxen 500 mg tablet 500 mg PO BID PRN (Reason: pain) Qty: 10 0RF ibuprofen 800 mg tablet 800 mg PO Q8H PRN (Reason: pain) Qty: 20 0RF acetaminophen [Tylenol] 325 mg tablet 650 mg PO Q6H PRN (Reason: fever or pain) Qty: 30 0RF penicillin V potassium 500 mg tablet 500 mg PO BID 10 Days Qty: 20 0RF acetaminophen 500 mg tablet 1,000 mg PO QID PRN (Reason: pain) Qty: 30 0RF ibuprofen 600 mg tablet 600 mg PO Q6H PRN (Reason: pain) Qty: 20 0RF Stand Alone Forms: Work/School Release Interventions: ED Discharge Assessment Last Done: 04/30/21 22:33 Discharge Date/Time: 04/30/21 22:36 [facility] Past Medical History Medical History No known health problems Social History Social History Alcohol intake: never Patient Tobacco Use Status: Never used Tobacco Advance Directives: No Advance Directives Information Provided: No
[2021-04-30 18:00] VITALS: BP 151/99; PULSE 87; RESP 16; TEMP 37.1; O2SAT 96
[2021-04-30 18:40] LABS: Appearance Urine CLEAR; Color Urine YELLOW; Glucose Urine UA NEG (NEG); Leukocyte Esterase Urine NEG (NEG); Nitrite Urine NEG (NEG); Specific Gravity - Urine <= 1.005 (1.005-1.025); Urine Blood NEG (NEG); Urine Ketones NEG (NEG); Urine Protein NEG (NEG-TRACE)
[2021-04-30 18:53] LABS: MANUAL DIFF FLAG NO
[2021-04-30] MEDS: 0.9 % Sodium Chloride 1,000 ML 999 ML IV (18:56)
[2021-04-30] MEDS: ondansetron HCL 4 MG/2 ML VIAL IVPUSH (18:56)
[2021-04-30] MEDS: Morphine Sulfate 4 MG/ML CARTRIDGE IVPUSH (18:57)
[2021-04-30 19:04] LABS: Lactic Acid 0.7 mmol/L (0.5-2.0)
[2021-04-30 19:05] VITALS: BP 106/61; PULSE 82; RESP 16; TEMP 36.8; O2SAT 98
[2021-04-30 19:10] LABS: Alanine Aminotransferase 28 U/L (0-40); Albumin Level 4.2 g/dL (3.5-5.0); Alkaline Phosphatase 71 U/L (39-117); Anion Gap 12 (12-20); Aspartate Amino Transferase 21 U/L (5-37); Bilirubin Total 1.3 mg/dL (0.0-1.0); Blood Urea Nitrogen 11 mg/dL (9-16); Carbon Dioxide 27 mmol/L (22-29); Chloride 100 mmol/L (96-108); Creatinine Clr Calc Pharmacy 187.1; Estimated Glomerular Filt Rate > 60; Glucose Random 88 mg/dL (60-115); Lipase 13 U/L (8-78); Potassium 3.6 mmol/L (3.3-5.1); Sodium 135 mmol/L (135-145); Total Protein 7.6 g/dL (6.5-8.0)
[2021-04-30 19:14] LABS: Basophils Percent Auto 0.3 % (0-2); Eosinophils Absolute Auto 0.1 X10*3/uL (0.0-0.4); Eosinophils Percent Auto 0.9 % (0-4); Hematocrit 43.2 % (42.0-52.0); Hemoglobin 14.6 g/dl (14.0-18.0); Imm Gran Abs Auto 0.08 X10*3/uL (0.00-0.03); Imm Gran Pct Auto 0.7 % (0.0-0.4); Lymphocytes Absolute Auto 2.1 X10*3/uL (1.2-4.9); Lymphocytes Percent Auto 17.8 % (20-40); Mean Corpuscular HGB Conc 33.8 g/dl (31.0-36.0); Mean Corpuscular Hemoglobin 30.2 pg (27.0-33.0); Mean Corpuscular Volume 89.3 fL (80.0-98.0); Mean Platelet Volume 9.6 fL (9.4-12.4); Monocytes Absolute Auto 1.4 X10*3/uL (0.1-1.2); Monocytes Percent Auto 11.4 % (2-11); Neutrophils Absolute Auto 8.2 x10*3/uL (2.0-8.3); Neutrophils Percent Auto 68.9 % (45-73); Platelet Count 245 X10*3/uL (160-400); Red Blood Count 4.84 X10*6/uL (4.60-5.80); Red Cell Distribution Width 12.7 % (11.0-16.0); White Blood Count 11.8 X10*3/uL (4.8-10.8)
[2021-04-30] MEDS: iohexoL 350 MG/ML 100 ML INFUS..BTL IV (19:39)
[2021-04-30] MEDS: levoFLOXacin/D5W 500 MG/100 ML PIGGYBACK 100 MG IV (20:45)
[2021-04-30 21:52] VITALS: BP 115/64; PULSE 84; RESP 16; TEMP 36.7; O2SAT 96
[2021-04-30] MEDS: metroNIDAZOLE 500 MG TABLET PO (21:57)
== END 2021-04-30 22:36 | disposition home or self-care (01) ==
PROVIDERS: Emergency Provider Internal Medicine; PCP Family Medicine
DX: K57.30 Diverticulosis of large intestine without perforation or abscess without bleeding (principal); R10.30 Lower abdominal pain, unspecified; Z79.899 Other long term (current) drug therapy
CPT/HCPCS: 36415; 74177; 80053; 81003; 83605; 83690; 85025; 87040; 96361; 96365; 96375; 99284; J1956; J2270; J2405; Q9967

== ENCOUNTER 2021-06-11 03:42 | Emergency (ER) | payer OTHER, SELFPAY ==
[2021-06-11 03:46] VITALS: BP 147/94; PULSE 94; RESP 18; TEMP 37.1; O2SAT 98; BMI 113.8
--- NOTE | 2021-06-11 04:29 | ED.MALEGU ---
HPI - Male Genitourinary General Chief complaint: Urogenital-Male Stated complaint: Hemorrhoids Time Seen by Provider: 06/11/21 04:29 Source: patient Mode of arrival: ambulatory Limitations: no limitations History of Present Illness HPI Narrative: Patient been having rectal bleeding from hemorrhoids for last 2 months no abdominal pain patient has been constipated lately slight rectal pain no blood clots Related Data Previous Rx's Medication Instructions Recorded cyclobenzaprine 10 mg tablet 10 mg PO TID PRN #10 tab 05/08/20 lidocaine 5 % topical patch 1 patch TOPICAL DAILY #15 ea 05/08/20 (Lidoderm) naproxen 500 mg tablet 500 mg PO BID PRN #10 tab 05/08/20 acetaminophen 500 mg tablet 1,000 mg PO QID PRN #30 tab 09/15/20 ibuprofen 600 mg tablet 600 mg PO Q6H PRN #20 tab 09/15/20 penicillin V potassium 500 mg 500 mg PO BID 10 Days #20 tab 09/15/20 tablet acetaminophen 325 mg tablet 650 mg PO Q6H PRN #30 tab 09/17/20 (Tylenol) ibuprofen 800 mg tablet 800 mg PO Q8H PRN #20 tab 09/17/20 ciprofloxacin HCl 500 mg tablet 500 mg PO BID #20 tab 04/30/21 (Cipro) metronidazole 500 mg tablet 500 mg PO BID 10 Days #20 tab 04/30/21 oxycodone 5 mg tablet 5 mg PO Q6H PRN #20 tab 04/30/21 hydrocortisone acetate 25 mg 25 mg [place] BID #24 ea 06/11/21 rectal suppository (Anusol-HC) Allergies Allergy/AdvReac Type Severity Reaction Status Date / Time No Known Allergies Allergy Verified 09/15/20 14:26 Review of Systems Review of Systems: Yes all other systems are reviewed and are negative PMFSH Past Medical History Medical History No known health problems Social History Social History Alcohol intake: never Patient Tobacco Use Status: Never used Tobacco Advance Directives: No Physical Exam Vital Signs: Vital Signs: Last Vital Signs Temp 98.8 F 06/11/21 03:46 Pulse 94 06/11/21 03:46 Resp 18 06/11/21 03:46 BP 147/94 H 06/11/21 03:46 Pulse Ox 98 06/11/21 03:46 BMI result Body Mass Index 113.8 Const: General: comfortable and no acute distress Orientation/consciousness: patient oriented x3 Eyes: Conjunctivae: conjunctivae normal Sclerae: sclerae normal Resp: Effort & Inspection: normal respiratory effort Auscultation: clear to auscultation bilaterally Cardio: Rate: regular rate Rhythm: regular rhythm Heart sounds: S1 normal heart sound present and S2 normal heart sound present GI: Inspection: Yes normal to inspection Palpation (GI): Soft to palpation and nontender Rectal Exam - Male: Yes visual inspection normal, Yes normal sphincter tone and Yes Internal hemorrhoid(s) present Neuro: General: patient oriented x3 and no focal motor deficits MDM - Male Genitourinary MDM Narrative Medical decision making narrative: Patient with minor bleeding from hemorrhoids which were internal. Patient advised to avoid constipation or straining advised to follow surgeon will give him anusol suppository Discharge Plan Discharge Clinical Impression: Bleeding hemorrhoids Patient Disposition: Home, Self-Care Instructions: Hemorrhoids (ED) Additional Instructions: Avoid constipation or straining Anusol suppositories twice daily till heels Follow-up with surgeon Prescriptions: New hydrocortisone acetate [Anusol-HC] 25 mg suppository 25 mg NJ BID Qty: 24 0RF No Action cyclobenzaprine 10 mg tablet 10 mg PO TID PRN (Reason: muscle spasm) Qty: 10 0RF lidocaine [Lidoderm] 5 % adhesive patch,medicated 1 patch topical DAILY Qty: 15 0RF Rx Instructions: leave on most painful area for up to 12 hrs. May be substituted naproxen 500 mg tablet 500 mg PO BID PRN (Reason: pain) Qty: 10 0RF ibuprofen 800 mg tablet 800 mg PO Q8H PRN (Reason: pain) Qty: 20 0RF acetaminophen [Tylenol] 325 mg tablet 650 mg PO Q6H PRN (Reason: fever or pain) Qty: 30 0RF penicillin V potassium 500 mg tablet 500 mg PO BID 10 Days Qty: 20 0RF acetaminophen 500 mg tablet 1,000 mg PO QID PRN (Reason: pain) Qty: 30 0RF ibuprofen 600 mg tablet 600 mg PO Q6H PRN (Reason: pain) Qty: 20 0RF ciprofloxacin HCl [Cipro] 500 mg tablet 500 mg PO BID Qty: 20 0RF metronidazole 500 mg tablet 500 mg PO BID 10 Days Qty: 20 0RF oxycodone 5 mg tablet 5 mg PO Q6H PRN (Reason: Pain, Severe) Qty: 20 0RF Referrals: James Pack MD [Physician] - 1 week
== END 2021-06-11 04:56 | disposition home or self-care (01) ==
PROVIDERS: Emergency Provider Internal Medicine; PCP Family Medicine
DX: K64.5 Perianal venous thrombosis (principal)
CPT/HCPCS: 99282; 99283